=== PATIENT | male | born 1980 | race African-American/Black ===

== ENCOUNTER 2022-12-13 13:56 | Emergency (ER) | payer SELFPAY ==
[~2022-12-13] VITALS: Ht 180.3 cm; Wt 78.0 kg
[2022-12-13 14:01] VITALS: BP 136/62
[2022-12-13 15:33] LABS: BASOPHILS % 0.6 % (0.0-2.0); EOSINOPHILS % 0.2 % (0.0-5.0); HEMATOCRIT. 36.9 % (42.0-52.0); HEMOGLOBIN. 12.4 g/dL (14.0-18.0); LYMPHOCYTES % 31.8 % (20.0-50.0); MEAN CORPUSCULAR HEMOGLOBIN 31.2 pg (28.0-32.0); MEAN CORPUSCULAR VOLUME 92.8 fL (80.0-94.0); MEAN PLATELET VOLUME 7.6 fl (7.4-10.4); MONOCYTES % 4.3 % (2.0-8.0); NEUTROPHILS % 63.1 % (40.0-76.0); PLATELET 236 x1000/uL (130-400); RED BLOOD CELL COUNT 3.98 mill/uL (4.7-6.1); RED CELL DISTRIBUTION WIDTH 15.9 % (11.6-14.6)
[2022-12-13 15:47] LABS: CHLORIDE 106 mEq/L (98-107)
[2022-12-13 16:02] LABS: ETHANOL BLOOD 315 mg/dL
== END 2022-12-13 16:23 | disposition home or self-care (01) ==
LOC: EDBD 13:56 → ER 13:56
DX: T51.0X1A Toxic effect of ethanol, accidental (unintentional), initial encounter (principal); X58.XXXA Exposure to other specified factors, initial encounter
CPT/HCPCS: 36415; 80053; 80320; 85025; 99283; G0480